=== PATIENT | female | born 1965 | race Caucasian/White ===

== ENCOUNTER 2016-08-11 18:14 | Emergency (ER) | payer BC ==
[2016-08-11 18:25] VITALS: BP 154/98
--- NOTE | 2016-08-11 18:51 | UC ---
Lower Extremity/Ankle HPI - HPI Summary HPI Summary: Pain and swelling at lateral border of L great toe nail for a little over a week. Has had ingrown nail before, this is similar to that. Now redness and swelling is moving up the toe. - History of Current Complaint Chief Complaint: UCSkin Stated Complaint: TOE COMPLAINT Time Seen by Provider: 08/11/16 18:34 Hx Obtained From: Patient Hx Last Menstrual Period: 07/31/16 ?: No Onset/Duration: Gradual Onset, Lasting Days Severity Initially: Mild Severity Currently: Moderate Aggravating Factor(s): Standing, Ambulation Alleviating Factor(s): Rest Able to Bear Weight: Yes - Allergies/Home Medications Allergies/Adverse Reactions: Allergies Allergy/AdvReac Type Severity Reaction Status Date / Time Erythromycin Allergy Severe Nausea Verified 08/11/16 18:25 Penicillins Allergy Severe Rash Verified 08/11/16 18:25 Home Medications: Home Medications Acetaminophen TAB* [Tylenol TAB*] 650 mg PO PRN 08/11/16 [History] Amlodipine Besylate [Norvasc-] 5 mg PO DAILY 08/11/16 [History Confirmed ] Benzepril* 08/11/16 [History] Citalopram TAB* [CeleXA TAB*] 30 mg PO DAILY 08/11/16 [History Confirmed ] Zolpidem TAB* [Ambien TAB*] 10 mg PO BEDTIME PRN 08/11/16 [History Confirmed ] metFORMIN* [Glucophage*] 500 mg PO DAILY 08/11/16 [History Confirmed 08/11/16] PMH/Surg Hx/FS Hx/Imm Hx Endocrine History Of: Denies: Diabetes Cardiovascular History Of: Reports: Hypertension Denies: Pacemaker/ICD GI/ History Of: Denies: Renal Disease Cancer History Of: Denies: Breast Cancer - Surgical History Surgical History: Yes Surgery Procedure, Year, and Place: WISDOM TEETH REMOVED, UTERINE FIBROID ABLATION 2013 - Family History Known Family History: Negative: Diabetes, Blood Disorder - Social History Alcohol Use: None Substance Use Type: None Smoking Status (MU): Never Smoked Tobacco Review of Systems Constitutional: Negative Skin: Other - redness, swelling, drainage from L great toe Eyes: Negative ENT: Negative Respiratory: Negative Cardiovascular: Negative Gastrointestinal: Negative Genitourinary: Negative Motor: Negative Neurovascular: Negative Musculoskeletal: Negative Neurological: Negative Psychological: Negative All Other Systems Reviewed And Are Negative: Yes Physical Exam Triage Information Reviewed: Yes Appearance: Well-Appearing, No Pain Distress, Obese Vital Signs: Initial Vital Signs Temp 97.4 F 08/11/16 18:22 Pulse 89 08/11/16 18:22 Resp 16 08/11/16 18:22 BP 154/98 08/11/16 18:22 Pulse Ox 97 08/11/16 18:22 Vital Signs Reviewed: Yes Eye Exam: Normal Eyes: Positive: Conjunctiva Clear ENT Exam: Normal ENT: Positive: Normal ENT inspection, Hearing grossly normal, Pharynx normal, TMs normal Dental Exam: Normal Neck exam: Normal Neck: Positive: Supple, Nontender, No Lymphadenopathy Respiratory Exam: Normal Respiratory: Positive: Chest non-tender, Lungs clear, Normal breath sounds, No respiratory distress, No accessory muscle use Cardiovascular Exam: Normal Cardiovascular: Positive: RRR, No Murmur Musculoskeletal Exam: Normal Neurological Exam: Normal Psychological Exam: Normal Skin Exam: Other - marked erythema, swelling, and drainage from ingrown toenail on L great toe. Procedures - Procedure Summary Procedure Summary: Digital block on L great toenail with 8mL 2% lidocaine. Partial nail removal with scissors and clamp; pt iftikhar well. Lower Extremity Course/Dx - Differential Dx/Diagnosis Provider Diagnoses: L great toe ingrown toenail. L great toenail partial removal. L great toe cellulitis Discharge - Discharge Plan Condition: Stable Disposition: HOME Prescriptions: DOXYcycline CAP(*) [DOXYcycline 100MG CAP(*)] 100 mg PO BID #13 cap Patient Education Materials: Ingrown Nail (ED), Toenail/Fingernail Removal (ED) Referrals: Briana Zambrano MD [Primary Care Provider] - If Needed Additional Instructions: Return here or go to the emergency department if you have increasing redness, streaking up the foot, or if you suspect any other problems.
[2016-08-11] MEDS ORDERED: Lidocaine 2% PF * 5 ML VIAL ONE (19:02)
[2016-08-11] MEDS ORDERED: DOXYcycline CAP(*) 100 MG PO ONE (19:36)
== END 2016-08-11 20:00 | disposition home or self-care (01) ==
LOC: UCEAST 18:14
DX: L60.0 Ingrowing nail (principal); L03.032 Cellulitis of left toe; Z88.1 Allergy status to other antibiotic agents; Z88.0 Allergy status to penicillin; I10 Essential (primary) hypertension
CPT/HCPCS: 99212; A9270-GY; G0463

== ENCOUNTER 2018-07-17 17:22 | Emergency (ER) | payer BC ==
[2018-07-17 17:32] VITALS: BP 143/84
--- NOTE | 2018-07-17 18:25 | UC ---
Neck Pain HPI - HPI Summary HPI Summary: The patient is a 52-year-old female that slipped and fell on her buttocks about 2 weeks ago. Since then she has had left trapezius pain and pain radiating down her left arm to her elbow. It hurts when she turns her head to the right and left. He denies any headache. - History of Current Complaint Chief Complaint: UCUpperExtremity Stated Complaint: SHOULDER INJURY Time Seen by Provider: 07/17/18 18:10 Hx Obtained From: Patient Hx Last Menstrual Period: early may Onset/Duration Of Injury/Symptoms: Weeks Timing: Constant Onset/Duration: Gradual Onset Severity: Mild Pain Intensity: 3 Pain Scale Used: 0-10 Numeric Location: Diffuse - LEFT C6/7 TO LEFT TRAPEZIUS TO LEFT ELBOW Character: Dull, Aching Aggravating Factors: Position, Movement Alleviating Factors: OTC Meds Associated Signs & Symptoms: Positive: Negative - Allergies/Home Medications Allergies/Adverse Reactions: Allergies Allergy/AdvReac Type Severity Reaction Status Date / Time erythromycin base Allergy Intermediate Nausea Verified 07/17/18 17:25 Penicillins Allergy Intermediate Rash Verified 07/17/18 17:25 PMH/Surg Hx/FS Hx/Imm Hx Previously Healthy: Yes Endocrine History: Diabetes, Dyslipidemia Cardiovascular History: Hypertension - Surgical History Surgical History: Yes Surgery Procedure, Year, and Place: WISDOM TEETH REMOVED, UTERINE FIBROID ABLATION 2013 - Family History Known Family History: Negative: Diabetes, Blood Disorder - Social History Alcohol Use: None Substance Use Type: None Smoking Status (MU): Never Smoked Tobacco Review Of Systems Constitutional: Positive: Negative Skin: Positive: Negative Eyes: Positive: Negative ENT: Positive: Negative Respiratory: Positive: Negative Cardiovascular: Positive: Negative Gastrointestinal: Positive: Negative Genitourinary: Positive: Negative Musculoskeletal: Positive: Arthralgia, Myalgia Neurological: Positive: Negative Psychological: Positive: Negative All Other Systems Reviewed And Are Negative: Yes Physical Exam Triage Information Reviewed: Yes Appearance: Well-Appearing, No Pain Distress, Well-Nourished Vital Signs: Initial Vital Signs Temp 97.9 F 07/17/18 17:26 Pulse 62 07/17/18 17:26 Resp 18 07/17/18 17:26 BP 143/84 07/17/18 17:26 Pulse Ox 100 07/17/18 17:26 Vital Signs Reviewed: Yes Eyes: Positive: Conjunctiva Clear ENT: Positive: Hearing grossly normal. Negative: Nasal congestion, Nasal drainage, Trismus, Muffled voice, Hoarse voice Neck: Positive: Tenderness @ - C6/7 AND LEFT TRAP. Negative: Nuchal Rigidity Respiratory: Positive: Lungs clear, Normal breath sounds, No respiratory distress Cardiovascular: Positive: RRR, No Murmur Musculoskeletal: Positive: Strength Intact, ROM Intact, No Edema Neurological: Positive: Alert Psychological Exam: Normal Diagnostics - Radiology No standard instances Radiology Interpretation Completed By: ED Physician Summary of Radiographic Findings: ddd,djd, impingement on NFO Neck Pain Course/Dx - Differential Dx/Diagnosis Provider Diagnosis: Cervical radiculopathy, Degenerative disc disease, cervical Discharge - Sign-Out/Discharge Documenting (check all that apply): Patient Departure All imaging exams completed and their final reports reviewed: No - Discharge Plan Condition: Stable Disposition: HOME Patient Education Materials: Degenerative Disc Disease (ED), Cervical Radiculopathy (ED), Soft Cervical Collar (ED) Referrals: Briana Zambrano MD [Primary Care Provider] - As Soon As Possible - Billing Disposition and Condition Condition: STABLE Disposition: Home
--- NOTE | 2018-07-18 13:28 | UC ---
- Progress Note Progress Note: Patient x-ray from July 17, 2018 of the cervical spine is read by the radiologist as moderate to severe degenerative disc disease and straightening of the cervical spine. Provider from the same date also read as degenerative disc disease. Therefore there is no discrepancy Course/Dx - Diagnoses Provider Diagnoses: Cervical radiculopathy, Degenerative disc disease, cervical Discharge - Sign-Out/Discharge Documenting (check all that apply): Patient Departure All imaging exams completed and their final reports reviewed: Yes - Discharge Plan Condition: Stable Disposition: HOME Prescriptions: Cyclobenzaprine TAB* [Flexeril TAB*] 10 mg PO BEDTIME PRN #14 tab PRN Reason: Spasms Patient Education Materials: Soft Cervical Collar (ED), Cervical Radiculopathy (ED), Degenerative Disc Disease (ED) Referrals: Briana Zambrano MD [Primary Care Provider] - As Soon As Possible - Billing Disposition and Condition Condition: STABLE Disposition: Home
== END 2018-07-17 19:07 | disposition home or self-care (01) ==
LOC: UCEAST 17:22
DX: M54.12 Radiculopathy, cervical region (principal); M50.31 Other cervical disc degeneration, high cervical region; Z88.1 Allergy status to other antibiotic agents
CPT/HCPCS: 72050; 99213; G0463